=== PATIENT | female | born 1955 | race Caucasian/White ===

== ENCOUNTER → 2019-11-15 15:42 | Outpatient (BNVA) | payer MEDICARE, BC, SELFPAY | PROVIDERS: Family Provider Internal Medicine; PCP Internal Medicine; Visit Provider Internal Medicine | DX: K52.9 Noninfective gastroenteritis and colitis, unspecified (principal); F41.1 Generalized anxiety disorder | CPT/HCPCS: 82784; 83516; 84443 ==

== ENCOUNTER 2019-11-20 08:14 | Day surgery (SDC) | payer MEDICARE, BC, SELFPAY ==
[2019-11-16 11:24] VITALS: BMI 31.8
--- NOTE | 2019-11-20 08:30 | ANES.PREANE2 ---
Pre-Anesthetic Assessment Pre-Anesthetic Assessment: Height/Weight: Height 1.68 m Weight 89.358 kg Preop Diagnosis: see order Proposed Procedure: Operation Date: 11/20/19 09:30 Proposed Procedures p [id number]/[id number] K52.9(Not Applicable) - Vinnie Willis MD s Colonoscopy(Not Applicable) - Vinnie Willis MD Social: Social History: No alcohol and No tobacco Exam: Pre-Anes Outpt Exam: alert, oriented x 3, clear to auscultation bilaterally and regular rate & rhythm Airway: Submandibular: WNL Cervical ROM: WNL MP: 2 Dentition: Other (teeth ok) History/ROS: No significant history except as noted Pulmonary: Pulmonary: None reported CV/HEM: CV/HEM: HTN : : None reported Hepatic: Hepatic: None reported GI: GI: None reported Metabolic: Metabolic: None reported Musc/skel: Musc/skel: None reported Neuropsych: Neuropsych: Anxiety Anesthetic Plan: ASA status: 2 Anesthesia: Anesthesia Evaluation and MAC Risk of > 500 ml blood loss (7ml/kg in children): No PFSH Anesthesia PFSH: Medical History Anxiety Essential (primary) hypertension History of hysteroscopy Surgical History H/O left knee surgery History of cholecystectomy Family History Mother Cancer Diabetes Heart disease Mother Diabetes Father Diabetes Social History Smoking and tobacco status: never smoked Alcohol intake: former Marital status: Number of children: 1 service: No History of recent travel: No Current gender identity: Female Data Anesthesia Cardiac Studies: No Data to Display
[2019-11-20 08:41] VITALS: BP 113/75; PULSE 71; RESP 18; TEMP 36.6; O2SAT 98
[2019-11-20] MEDS: sodium chloride 0.9% 1,000 ML 30 ML IV (09:00)
--- NOTE | 2019-11-20 10:35 | W.PM.OPSUD ---
Surgery/Procedure H&P Update DATE OF PROCEDURE: November 20, 2019 DATE H&P PERFORMED: 11/15/19 PREOP DIAGNOSIS: see order PLANNED PROCEDURE: Operation Date: 11/20/19 09:30 Proposed Procedures p [id number]/[id number] K52.9(Not Applicable) - Vinnie Willis MD s Colonoscopy(Not Applicable) - Vinnie Willis MD
[2019-11-20 11:05] VITALS: BP 115/87; PULSE 77; RESP 16; TEMP 36.9; O2SAT 97
--- NOTE | 2019-11-20 11:10 | ANE.PACU2 ---
Inpatient post-anesthesia follow up: Airway intact: Yes Vital signs: Temperature 98.4 F Pulse Rate 77 Respiratory Rate 16 Blood Pressure 115/87 Pulse Oximetry 97 Oxygen Delivery Me thod Nasal Cannula Oxygen Flow Rate 2 Fraction of Inspir ed Oxygen Hydration adequate: Yes Nausea and vomiting: No Pain level: 1 Mental status: Baseline
[2019-11-20 11:16] VITALS: BP 118/86; PULSE 72; RESP 18; O2SAT 99
[2019-11-21 12:11] LABS: H. Pylori / CLO Test Negative
== END 2019-11-20 11:33 | disposition home or self-care (01) ==
PROVIDERS: Family Provider Internal Medicine; PCP Internal Medicine; Visit Provider Internal Medicine
PROC: 0DJ08ZZ Inspection of Upper Intestinal Tract, Via Natural or Artificial Opening Endoscopic (ICD-10-PCS; CPT 43235; principal; 2019-11-20 09:30)
PROC: 0DJD8ZZ Inspection of Lower Intestinal Tract, Via Natural or Artificial Opening Endoscopic (ICD-10-PCS; CPT 45378; 2019-11-20 09:30)
DX: K52.9 Noninfective gastroenteritis and colitis, unspecified (principal); F41.1 Generalized anxiety disorder; Z80.0 Family history of malignant neoplasm of digestive organs; Z82.49 Family history of ischemic heart disease and other diseases of the circulatory system; Z83.3 Family history of diabetes mellitus; I10 Essential (primary) hypertension
CPT/HCPCS: 12345; 43239; 45378; 87077; J2704; J7030

== ENCOUNTER → 2019-12-18 07:48 | Outpatient (BNVA) | payer MEDICARE, BC, SELFPAY | PROVIDERS: Family Provider Internal Medicine; PCP Internal Medicine; Visit Provider Specialist | DX: R56.9 Unspecified convulsions (principal) | CPT/HCPCS: 95816 ==

== ENCOUNTER → 2022-01-13 10:53 | Outpatient (BNVA) | payer MEDICARE, BC, SELFPAY | PROVIDERS: Family Provider Internal Medicine; PCP Nurse Practitioner; Visit Provider Specialist | DX: G40.219 Localization-related (focal) (partial) symptomatic epilepsy and epileptic syndromes with complex partial seizures, intractable, without status epilepticus (principal); Z79.899 Other long term (current) drug therapy | CPT/HCPCS: 36415; 80183; 99204 ==

== ENCOUNTER → 2023-06-04 11:28 | Outpatient (BNVA) | payer MEDICARE, BC, SELFPAY | PROVIDERS: Family Provider Internal Medicine; PCP Nurse Practitioner; Visit Provider Specialist | DX: G40.219 Localization-related (focal) (partial) symptomatic epilepsy and epileptic syndromes with complex partial seizures, intractable, without status epilepticus (principal); G30.9 Alzheimer's disease, unspecified; F02.80 Dementia in other diseases classified elsewhere, unspecified severity, without behavioral disturbance, psychotic disturbance, mood disturbance, and anxiety | CPT/HCPCS: 96116; 99215 ==

== ENCOUNTER → 2024-09-20 12:51 | Outpatient (BNVA) | payer MEDICARE, OTHER, SELFPAY | PROVIDERS: Family Provider Internal Medicine; PCP Nurse Practitioner; Referring Provider Nurse Practitioner; Visit Provider Specialist | DX: G40.219 Localization-related (focal) (partial) symptomatic epilepsy and epileptic syndromes with complex partial seizures, intractable, without status epilepticus (principal); G30.9 Alzheimer's disease, unspecified; F02.80 Dementia in other diseases classified elsewhere, unspecified severity, without behavioral disturbance, psychotic disturbance, mood disturbance, and anxiety | CPT/HCPCS: 36415; 80053; 84439; 84443; 85025; 99213 ==

== ENCOUNTER → 2025-01-01 10:03 | Outpatient (BNVA) | payer MEDICARE, OTHER, SELFPAY | PROVIDERS: Family Provider Internal Medicine; PCP Nurse Practitioner; Visit Provider Orthopaedic Surgery | DX: M25.551 Pain in right hip (principal); M16.11 Unilateral primary osteoarthritis, right hip; S79.921A Unspecified injury of right thigh, initial encounter; W01.0XXA Fall on same level from slipping, tripping and stumbling without subsequent striking against object, initial encounter; M71.551 Other bursitis, not elsewhere classified, right hip | CPT/HCPCS: 73502; 99204 ==

== ENCOUNTER 2025-01-15 05:00 | Outpatient (RCR) | payer MEDICARE, OTHER, SELFPAY | END 2025-02-13 23:59 | disposition home or self-care (01) | LOC: GPT 05:00 | PROVIDERS: Family Provider Internal Medicine; PCP Nurse Practitioner; Visit Provider Orthopaedic Surgery | DX: M25.551 Pain in right hip (principal); M70.61 Trochanteric bursitis, right hip; M76.01 Gluteal tendinitis, right hip | CPT/HCPCS: 97110; 97140; 97161 ==

== ENCOUNTER → 2025-02-01 10:56 | Outpatient (BNVA) | payer MEDICARE, OTHER, SELFPAY | PROVIDERS: Family Provider Internal Medicine; PCP Nurse Practitioner; Visit Provider Orthopaedic Surgery | DX: M70.61 Trochanteric bursitis, right hip (principal) | CPT/HCPCS: 20610; 99213; J3301; J3490; J9999 ==

== ENCOUNTER → 2025-02-26 08:37 | Outpatient (BNVA) | payer MEDICARE, OTHER, SELFPAY | PROVIDERS: Family Provider Internal Medicine; PCP Nurse Practitioner; Visit Provider Orthopaedic Surgery | DX: M70.61 Trochanteric bursitis, right hip (principal) | CPT/HCPCS: 99213 ==

== ENCOUNTER 2025-03-16 09:05 | Outpatient (RCR) | payer MEDICARE, OTHER, SELFPAY | END 2025-03-16 23:59 | disposition home or self-care (01) | LOC: GPT 09:05 | PROVIDERS: Family Provider Internal Medicine; PCP Nurse Practitioner; Visit Provider Orthopaedic Surgery | DX: M25.551 Pain in right hip (principal); M70.61 Trochanteric bursitis, right hip; M76.01 Gluteal tendinitis, right hip | CPT/HCPCS: 97110; 97112; 97140 ==

== ENCOUNTER 2025-03-23 13:27 | Outpatient (RCR) | payer MEDICARE, OTHER, SELFPAY | END 2025-04-15 23:59 | disposition home or self-care (01) | LOC: GPT 13:27 | PROVIDERS: PCP Nurse Practitioner; Visit Provider Orthopaedic Surgery | DX: M25.551 Pain in right hip (principal) | CPT/HCPCS: 97164 ==